=== PATIENT | female | born 1950 | race Caucasian/White ===

== ENCOUNTER → 2017-05-12 | Outpatient (CLI) | payer MEDICARE ==
[2017-05-12 09:22] LABS: EKG EKG PERFORMED
[2017-05-12 09:53] LABS: Potassium 4.6 mmol/L (3.5-5.1)
== END | disposition home or self-care (01) ==
LOC: LABPAT 08:58
PROVIDERS: ATTEND Surgery
DX: I10 Essential (primary) hypertension (principal); Z01.812 Encounter for preprocedural laboratory examination
CPT/HCPCS: 36415; 84132; 93005

== ENCOUNTER 2017-05-18 08:25 | Day surgery (SDC) | payer MEDICARE ==
[~2017-05-18 08:25] MED LIST: DEXAMETHASONE SOD PHOSPHATE 10 MG/ML 1 ML VIAL IV ONE; HEPARIN SODIUM,PORCINE 5,000 UNIT/ML 1 ML VIAL SQ ONE; MIDAZOLAM 2 MG/2 ML VIAL IV PRN; ONDANSETRON 4 MG/2 ML VIAL IVP ONE; ceFAZolin IN SWFI 2 GM/20 ML SYRINGE IVP ONE
[2017-05-18 08:54] LABS: Glucose,Whole Blood 98 mg/dL (75-99)
[2017-05-18] MEDS: LACTATED RINGERS 1,000 ML IV SCH ×2 (08:55→19:20)
[2017-05-18] MEDS ORDERED: LIDOCAINE 1% 20 ML VIAL (10MG/ML) FOR IV START INTRADERMA ONE (08:56)
--- NOTE | 2017-05-18 09:17 | P.GSHP ---
History of Present Illness H&P Date: 05/18/17 Chief Complaint: GERD, recurrent hiatal hernia This is a 67-year-old female who is developed recurrent GERD symptoms. Patient with recent EGD. She's had evidence of a recurrent hiatal hernia and possible slipped fundoplication. She presents today for laparoscopic hiatal hernia repair. Past Medical History Past Medical History: GERD/Reflux, Hypertension, Osteoarthritis (OA) Additional Past Medical History / Comment(s): HYPOGLYCEMIC History of Any Multi-Drug Resistant Organisms: None Reported Past Surgical History: Appendectomy, Back Surgery, Cholecystectomy, Hysterectomy , Joint Replacement Additional Past Surgical History / Comment(s): right knee replaced, right shoulder surg, bunionectomy,foot surg, D & C, repair of hiatal hernia Past Anesthesia/Blood Transfusion Reactions: No Reported Reaction Past Psychological History: No Psychological Hx Reported Smoking Status: Former smoker Past Alcohol Use History: None Reported Additional Past Alcohol Use History / Comment(s): quit smoking 35 yrs. ago, smoked for 6-7 yrs. only Past Drug Use History: None Reported - Past Family History Mother Family Medical History: Cancer Additional Family Medical History / Comment(s): rectal cancer Brother(s) Family Medical History: Cancer Medications and Allergies Home Medications Medication Instructions Recorded Confirmed Type Lisinopril/Hydrochlorothiazide 1 tab PO QAM 02/16/15 05/18/17 History [Lisinopril-Hctz 20-25 mg Tab] Esomeprazole Magnesium [NexIUM 22.3 mg PO QAM 04/24/17 05/18/17 History 24Hr] Magnesium Oxide 400 mg PO DAILY 04/24/17 05/18/17 History Allergies Allergy/AdvReac Type Severity Reaction Status Date / Time No Known Allergies Allergy Verified 05/11/17 11:16 Surgical - Exam Vital Signs Temp Pulse Resp BP Pulse Ox 96.7 F L 76 16 136/83 95 05/18/17 08:42 05/18/17 08:42 05/18/17 08:42 05/18/17 08:42 05/18/17 08:42 - General well developed, no distress - Eyes PERRL - ENT normal pinna - Neck no masses - Respiratory normal expansion - Cardiovascular Rhythm: regular - Abdomen Abdomen: soft, non tender Assessment and Plan Assessment: GERD. We'll perform laparoscopic hiatal hernia repair.
[2017-05-18] MEDS ORDERED: MIDAZOLAM 2 MG/2 ML VIAL ONE (09:46)
[2017-05-18] MEDS ORDERED: SUCCINYLCHOLINE CHLORIDE 100 MG/5 ML SYR IV ONE (09:46)
[2017-05-18] MEDS ORDERED: ROCURONIUM BROMIDE 10 MG/ML 10 ML VIAL IV ONE (09:46)
[2017-05-18] MEDS ORDERED: LIDOCAINE 1% INJ 10MG/ML (20 ML MDV) ONE (09:46)
[2017-05-18] MEDS ORDERED: PROPOFOL 10 MG/ML 20 ML VIAL IV ONE (09:46)
[2017-05-18] MEDS ORDERED: KETOROLAC 30 MG/ML 1 ML VIAL ONE (09:46)
[2017-05-18] MEDS ORDERED: fentaNYL (PF) 50 MCG/ML 2 ML AMP ONE (09:46)
[2017-05-18] MEDS ORDERED: BUPIVACAINE (PF) 0.25% 30 ML VIAL SQ ONE ×2 (10:06)
[2017-05-18] MEDS ORDERED: LIDOCAINE 2%-EPI 1:100,000 20 ML VIAL SQ ONE ×2 (10:06)
[2017-05-18] MEDS ORDERED: LACTATED RINGERS 1,000 ML IV ONE ×2 (10:29→10:49)
[2017-05-18] MEDS ORDERED: HYDROmorphone 0.5 MG/0.5 ML SYRINGE IVP PRN (10:49)
[2017-05-18] MEDS ORDERED: ACETAMINOPHEN TAB 325 MG TAB PO PRN (10:49)
[2017-05-18] MEDS ORDERED: ONDANSETRON 4 MG/2 ML VIAL IVP PRN (10:49)
[2017-05-18] MEDS ORDERED: NALOXONE 0.4 MG/ML 1 ML VIAL IV PRN (10:49)
--- NOTE | 2017-05-18 10:49 | P.OP ---
Date of Procedure: 05/18/17 Preoperative Diagnosis: GERD Postoperative Diagnosis: Recurrent hiatal hernia Procedure(s) Performed: Laparoscopic hiatal hernia repair with mesh. Anesthesia: FADIA Surgeon: Peter Mederos Estimated Blood Loss (ml): 10 Pathology: none sent Condition: stable Disposition: PACU Description of Procedure: The patient's placed the operative table in the supine position. She received general anesthesia. Her abdomen was prepped and draped in sterile fashion. She was then placed in dorsal 5 position. Her skin incision sites were anesthetized 1% local Xylocaine. Using 11 blade the skin was incised in the left periumbilical area. Using an optical 5 mm trocar the perineal cavity is entered under direct vision and then the abdomen was insufflated after adequate insufflation the laparoscope size back the pleural cavity. And extubated 5 mm trocar was placed in the left epigastric, right epigastric, right lateral and left lateral position. The left lateral lobe liver was retracted. There were adhesions to the stomach and these were lysed with sharp dissection. The luda was examined. There appeared to be evidence of a posterior lateral hiatal hernia involving the left luda. The fundoplication wrap was lysed and then the left luda was dissected. The right luda was dissected. The crural defect was then closed using 2-0 Ethibond suture. After this repair was performed the hiatus was buttressed using [place] [employer] a mesh. This was secured with 2-0 Ethibond suture. There was no evidence of any injury to the stomach or esophagus. The abdomen was irrigated. There is no bleeding seen. The trochars withdrawn. Skin was closed interrupted 3-0 Monocryl suture. Dermabond was applied. Patient sent to recovery in stable condition.
[2017-05-18] MEDS: HYDROmorphone 0.5 MG/0.5 ML SYRINGE IVP PRN ×4 (11:12→11:30)
[2017-05-18] MEDS ORDERED: KETOROLAC 30 MG/ML 1 ML VIAL IVP SCH (12:00)
[2017-05-18] MEDS: HYDROcodone/APAP 5-325MG 1 EACH TAB PO PRN (14:09)
[2017-05-18 15:57] VITALS: BMI 31.8
[2017-05-18] MEDS: KETOROLAC 30 MG/ML 1 ML VIAL IVP SCH (19:14)
[2017-05-19] MEDS: KETOROLAC 30 MG/ML 1 ML VIAL IVP SCH ×2 (00:33→06:55)
[2017-05-19] MEDS: HYDROcodone/APAP 5-325MG 1 EACH TAB PO PRN (03:33)
[2017-05-19 08:37] VITALS: BP 146/78; PULSE 66; RESP 20; TEMP 96.9
[2017-05-19] MEDS ORDERED: ENOXAPARIN 40 MG/0.4 ML SYRINGE SQ SCH (09:00)
--- NOTE | 2017-05-19 09:32 | P.DS ---
Providers Expected date of discharge: 05/19/17 Attending physician: Peter Mederos Consults: 05/18/17 10:49 Consult Physician Routine Consulting Provider: Belinda Bautista Consult Reason/Comments: Medical management Do you want consulting provider notified?: Yes Primary care physician: Kitty Torres [facility] Course: 67-year-old female who has developed recurrent esophageal reflux symptoms. Patient did have a recent EGD it did show evidence of recurrent hiatal hernia possible slipped fundoplication. Patient presents on an elective basis to undergo laparoscopic hiatal hernia repair done on May 18 there were no postop events patient was tolerating a diet pain medication effective for pain control was up ambulating in the hallway surgical sites no evidence of redness noted patient was felt to be appropriate to be discharged home Impression discharge diagnosis Recurrent hiatal hernia Laparoscopic hiatal hernia repair with mesh done on May 18 Recurrent EGD symptoms A recent EGD showed evidence of a recurrent hiatal hernia The above impression and plan of care have been discussed and directed by signing physician. Liset Smart nurse practitioner acting as scribe for signing physician. Plan - Discharge Summary Discharge Rx Participant: Yes New Discharge Prescriptions: New Acetaminophen Tab [Tylenol] 650 mg PO Q6HR PRN tab PRN Reason: Mild Pain Or Fever >= 100.5 HYDROcodone/APAP 5-325MG [[place] 5-325] 1 each PO Q4HR PRN #30 tab PRN Reason: Mild Pain Continue Lisinopril/Hydrochlorothiazide [Lisinopril-Hctz 20-25 mg Tab] 1 tab PO QAM Esomeprazole Magnesium [NexIUM 24Hr] 22.3 mg PO QAM Magnesium Oxide 400 mg PO DAILY Discharge Medication List Lisinopril/Hydrochlorothiazide [Lisinopril-Hctz 20-25 mg Tab] 1 tab PO QAM 02/16 [History] Esomeprazole Magnesium [NexIUM 24Hr] 22.3 mg PO QAM 04/24/17 [History] Magnesium Oxide 400 mg PO DAILY 04/24/17 [History] Acetaminophen Tab [Tylenol] 650 mg PO Q6HR PRN tab 05/19/17 [Rx] HYDROcodone/APAP 5-325MG [[place] 5-325] 1 each PO Q4HR PRN #30 tab 05/19/17 [Rx] Follow up Appointment(s)/Referral(s): Peter Mederos MD [STAFF PHYSICIAN] - 1 Week Activity/Diet/Wound Care/Special Instructions: Shower daily no tub bath No lifting greater than 4 pounds until seen in follow-up visit Report to the surgeon in a surgical of any surgical redness at surgical sites Advance diet as tolerated Discharge Disposition: HOME SELF-CARE
--- NOTE | 2017-05-19 13:22 | FL ---
EXAMINATION TYPE: FL UGI w esophagus DATE OF EXAM: 05/19/2017 COMPARISON: NONE HISTORY: Post Suad fundoplication TECHNIQUE: A single contrast UGI study is performed. 50 mL of Omnipaque 350 and 30 seconds of fluor oscopy time were utilized. 19 images were saved. FINDINGS: The esophagus shows normal motility and emptying into the stomach. No evidence of hiatal hernia or s tricture noted. The stomach shows normal distensibility, peristalsis, and mucosal folds. No evidence of postprocedural leak. IMPRESSION: No evidence of post Suad fundoplication leak or obstruction.
[2017-05-20] MEDS ORDERED: LISINOPRIL-HCTZ 20-25 MG 1 EACH TAB PO SCH (09:00)
[2017-05-20] MEDS ORDERED: MAGNESIUM OXIDE 400 MG TAB PO SCH (09:00)
== END 2017-05-19 13:20 | disposition home or self-care (01) ==
LOC: OR 08:25 → 6PED 11:22 → OR 05-19 13:20
PROVIDERS: ATTEND Surgery
DX: K44.9 Diaphragmatic hernia without obstruction or gangrene (principal); K66.0 Peritoneal adhesions (postprocedural) (postinfection); K21.9 Gastro-esophageal reflux disease without esophagitis; I10 Essential (primary) hypertension; M19.90 Unspecified osteoarthritis, unspecified site; Z79.899 Other long term (current) drug therapy; Z87.891 Personal history of nicotine dependence; Z96.651 Presence of right artificial knee joint; Z80.0 Family history of malignant neoplasm of digestive organs; Z80.9 Family history of malignant neoplasm, unspecified
CPT/HCPCS: 43282; 74240; C1781; J2250; J1644; J1100; Q9967; J0690; J2405; J2001; J1650; J3010; J1885 ×2; J0330; J2704; J1170

== ENCOUNTER → 2019-05-06 | Outpatient (CLI) | payer MEDICARE ==
--- NOTE | 2019-05-06 09:32 | FL ---
EXAMINATION TYPE: FL barium swallow DATE OF EXAM: 05/06/2019 CLINICAL HISTORY: Dysphagia. Vomiting and gastroesophageal reflux. The feels as if there is recurrent hernia present. TECHNIQUE: A double contrast esophagram is performed utilizing air and barium. A total of 47 second s of fluoroscopic time was utilized during procedure. 31 fluoroscopic images were saved. COMPARISON: None FINDINGS: The esophagus shows normal motility and emptying into the stomach other than some delayed w ithin the residual hiatal hernia is visualized. Small recurrent hiatal hernia appears or conspicuous on supine imaging. No significant gastroesophageal reflux seen examination. There is evidence of prio r Suad fundoplication with nonobstructive narrowing distal to the small recurrent hernia. IMPRESSION: Small recurrent hiatal hernia status post Suad fundoplication.
== END | disposition home or self-care (01) ==
LOC: RADUSWWP 08:37
PROVIDERS: ATTEND Surgery
DX: K21.9 Gastro-esophageal reflux disease without esophagitis (principal); Z98.890 Other specified postprocedural states
CPT/HCPCS: 74220

== ENCOUNTER → 2019-05-13 | Day surgery (SDC) | payer MEDICARE ==
[2019-05-10 15:26] VITALS: BMI 32.2
[~2019-05-13] MED LIST changes: -DEXAMETHASONE SOD PHOSPHATE 10 MG/ML 1 ML VIAL IV ONE; +GLUCAGON 1 MG/ML VIAL ONE; -HEPARIN SODIUM,PORCINE 5,000 UNIT/ML 1 ML VIAL SQ ONE; +IV FLUID CONTINUATION 450 ML IV ONE; +LACTATED RINGERS 1,000 ML IV SCH; +LIDOCAINE 1% 20 ML VIAL (10MG/ML) FOR IV START INTRADERMA PRN; +LIDOCAINE 1% INJ 10MG/ML (20 ML MDV) ONE; -MIDAZOLAM 2 MG/2 ML VIAL IV PRN; -ONDANSETRON 4 MG/2 ML VIAL IVP ONE; +PROPOFOL 10 MG/ML 20 ML VIAL IV ONE; -ceFAZolin IN SWFI 2 GM/20 ML SYRINGE IVP ONE
[2019-05-13 08:30] VITALS: TEMP 97.6
--- NOTE | 2019-05-13 09:01 | P.GSHP ---
History of Present Illness H&P Date: 05/13/19 Chief Complaint: Diarrhea, GERD This is a 69-year-old female who's had issues with diarrhea and GERD. She does today for EGD and colonoscopy. Past Medical History Past Medical History: GERD/Reflux, Hypertension, Osteoarthritis (OA) Additional Past Medical History / Comment(s): HYPOGLYCEMIC History of Any Multi-Drug Resistant Organisms: None Reported Past Surgical History: Appendectomy, Back Surgery, Cholecystectomy, Hysterectomy, Joint Replacement Additional Past Surgical History / Comment(s): right knee replaced, right shoulder surg, bunionectomy,foot surg, D & C, repair of hiatal hernia Past Anesthesia/Blood Transfusion Reactions: No Reported Reaction Additional Past Anesthesia/Blood Transfusion Reaction / Comment(s): low blood pressure afterwards Past Alcohol Use History: None Reported - Past Family History Mother Family Medical History: Cancer Additional Family Medical History / Comment(s): rectal cancer Brother(s) Family Medical History: Cancer Medications and Allergies Home Medications Medication Instructions Recorded Confirmed Type Lisinopril/Hydrochlorothiazide 1 tab PO QAM 02/16/15 05/13/19 History [Lisinopril-Hctz 20-25 mg Tab] Esomeprazole Magnesium [NexIUM 22.3 mg PO QAM 04/24/17 05/13/19 History 24Hr] Levothyroxine Sodium [Synthroid] 75 mcg PO DAILY 05/10/19 05/13/19 History rOPINIRole HCL [Requip] 0.5 mg PO HS 05/10/19 05/13/19 History Allergies Allergy/AdvReac Type Severity Reaction Status Date / Time Sulfa (Sulfonamide Allergy Unknown Verified 05/13/19 08:33 Antibiotics) Childhood Surgical - Exam Vital Signs Temp Pulse Resp BP Pulse Ox 97.6 F 65 16 164/91 95 05/13/19 08:29 05/13/19 08:29 05/13/19 08:29 05/13/19 08:29 05/13/19 08:29 - General well developed, well nourished, no distress - Eyes PERRL - ENT normal pinna - Neck no masses - Respiratory normal expansion - Cardiovascular Rhythm: regular - Abdomen Abdomen: soft, non tender Assessment and Plan Assessment: Diarrhea, GERD. We'll perform EGD and colonoscopy.
[2019-05-13 09:45] VITALS: BP 126/74; PULSE 55; RESP 18
--- NOTE | 2019-05-13 09:56 | P.OP ---
Date of Procedure: 05/13/19 Preoperative Diagnosis: Diarrhea GERD Postoperative Diagnosis: Antral gastritis Mild esophagitis Procedure(s) Performed: EGD Colonoscopy Anesthesia: MAC Pathology: other (Antrum, esophagus) Description of Procedure: The patient's placed on the endoscopy table in the lateral position. She received IV sedation. The gastroscope placed she oropharynx and passed into the esophagus and then into the stomach. Scope was then placed through the pylorus. The first and second portion of the duodenum appeared normal. Scope was then brought back the antrum this is mildly inflamed. A biopsies performed. The scope was then retroflexed and remainder of the stomach appeared normal. There was a small recurrent hiatal hernia. The GE junction was at 40 cm. The distal esophagus. Minimal inflamed and a biopsies performed. The proximal esophagus. Normal. Scope was withdrawn for patient. Next digital rectal exam was performed. The colonoscope was then advanced to the level of the left colon. The bowel was very tortuous. Scope could not be advanced. This point scope was withdrawn. There was a few scattered diverticula. In the descending and sigmoid colon. Scope was then brought back the rectum is normal. Scope was withdrawn for patient. Patient scheduled for a barium enema.
--- NOTE | 2019-05-13 15:08 | FL ---
EXAMINATION TYPE: FL barium enema DATE OF EXAM: 05/13/2019 COMPARISON: NONE HISTORY: Incomplete colonoscopy, no biopsy, left colon visu TECHNIQUE: A single contrast barium enema study is performed. FINDINGS: Building Admin view of the abdomen shows overall non-obstructive bowel gas pattern. No evidence of any mass or polyp, obstructing or constricting lesion throughout the colon. Mild sigmo id diverticulosis without diverticulitis. Appendix was filled and appeared normal. The terminal ileum was refluxed and appears within normal l imits. IMPRESSION: Mild sigmoid diverticulosis without diverticulitis. Otherwise unremarkable study.
== END ==
LOC: ORWHC2ENDO 08:06
PROVIDERS: ATTEND Surgery
DX: K21.0 Gastro-esophageal reflux disease with esophagitis (principal); K29.50 Unspecified chronic gastritis without bleeding; K31.89 Other diseases of stomach and duodenum; K44.9 Diaphragmatic hernia without obstruction or gangrene; Q43.8 Other specified congenital malformations of intestine; K57.30 Diverticulosis of large intestine without perforation or abscess without bleeding; E07.9 Disorder of thyroid, unspecified; I10 Essential (primary) hypertension; M19.90 Unspecified osteoarthritis, unspecified site; G25.81 Restless legs syndrome; E16.2 Hypoglycemia, unspecified; Z90.49 Acquired absence of other specified parts of digestive tract; Z90.710 Acquired absence of both cervix and uterus; Z96.651 Presence of right artificial knee joint; Z98.890 Other specified postprocedural states; Z80.0 Family history of malignant neoplasm of digestive organs; Z80.9 Family history of malignant neoplasm, unspecified; Z79.890 Hormone replacement therapy; Z79.899 Other long term (current) drug therapy; Z88.2 Allergy status to sulfonamides
CPT/HCPCS: 88305; 74270; 43239; 45330; J1610; J2001; J2704; 45378

== ENCOUNTER → 2020-01-02 | Outpatient (CLI) | payer MEDICARE, OTHER ==
--- NOTE | 2020-01-02 09:21 | FL ---
EXAMINATION TYPE: FL UGI air w esophagus DATE OF EXAM: 01/02/2020 8:55 AM COMPARISON: NONE CLINICAL HISTORY: Difficulty in swallowing. Preliminary view of the abdomen reveals a normal bowel gas pattern. Upper GI examination was performed according to the single contrast technique. Thin liquid barium was swallowed without difficulty or delay. Esophageal peristalsis and motility are within normal limits . There is no evidence for intraluminal mass or esophagitis. There is moderately severe gastroesophag eal reflux extending to the level of the thoracic inlet. Sliding-type partially reducible hiatal andriy ia is noted small in size. The stomach has a normal appearance in terms of its size, shape and locati on. No gastric filling defects or ulcer craters are seen. The duodenal bulb and sweep are also free of intraluminal lesion or ulcer crater. And single contrast cervical esophagram was also performed following the ingestion of thin liquid bar ium. There is no evidence for aspiration or penetration. No masses are seen. No filling defects ar e evident. IMPRESSION: 1. Gastroesophageal reflux as noted without definite evidence for esophagitis at this time. 2. Sliding-type partially reducible hiatal hernia.
== END | disposition home or self-care (01) ==
LOC: RADUSWWP 07:56
PROVIDERS: ATTEND Surgery
DX: K21.9 Gastro-esophageal reflux disease without esophagitis (principal); K44.9 Diaphragmatic hernia without obstruction or gangrene
CPT/HCPCS: 74246

== ENCOUNTER → 2020-01-12 | Day surgery (SDC) | payer MEDICARE, OTHER ==
[2020-01-11 09:36] VITALS: BMI 30.9
[~2020-01-12] MED LIST changes: -GLUCAGON 1 MG/ML VIAL ONE; -IV FLUID CONTINUATION 450 ML IV ONE; +LACTATED RINGERS 1,000 ML IV ONE; +LIDOCAINE 1% (10MG/ML) FOR IV START INTRADERMA ONE; -LIDOCAINE 1% 20 ML VIAL (10MG/ML) FOR IV START INTRADERMA PRN; -LIDOCAINE 1% INJ 10MG/ML (20 ML MDV) ONE
[2020-01-12 11:01] VITALS: TEMP 98
--- NOTE | 2020-01-12 12:06 | P.GSHP ---
History of Present Illness H&P Date: 01/12/20 Chief Complaint: Dysphagia Cyst 69-year-old female with complaints of dysphagia. Patient rents today for EGD. Her recent esophagram shows evidence of a small sliding hiatal hernia Past Medical History Past Medical History: GERD/Reflux, Hypertension, Osteoarthritis (OA), Thyroid Disorder Additional Past Medical History / Comment(s): HYPOGLYCEMIC, RECENT VOMITING AT NIGHT History of Any Multi-Drug Resistant Organisms: None Reported Past Surgical History: Appendectomy, Back Surgery, Cholecystectomy, Hernia Repair, Hysterectomy, Joint Replacement Additional Past Surgical History / Comment(s): right knee replaced, right shoulder surg, bunionectomy,foot surg, D & C, repair of hiatal hernia Past Anesthesia/Blood Transfusion Reactions: No Reported Reaction Additional Past Anesthesia/Blood Transfusion Reaction / Comment(s): low blood pressure afterwards Smoking Status: Former smoker - Past Family History Mother Family Medical History: Cancer Additional Family Medical History / Comment(s): rectal cancer Brother(s) Family Medical History: Cancer Medications and Allergies Home Medications Medication Instructions Recorded Confirmed Type Lisinopril/Hydrochlorothiazide 1 tab PO QAM 02/16/15 01/11/20 History [Lisinopril-Hctz 20-25 mg Tab] Esomeprazole Magnesium [NexIUM 22.3 mg PO QAM 04/24/17 01/11/20 History 24Hr] Levothyroxine Sodium [Synthroid] 75 mcg PO DAILY 05/10/19 01/11/20 History rOPINIRole HCL [Requip] 2 mg PO HS 05/10/19 01/11/20 History Allergies Allergy/AdvReac Type Severity Reaction Status Date / Time Sulfa (Sulfonamide Allergy Unknown Verified 01/11/20 09:12 Antibiotics) Childhood Surgical - Exam Vital Signs Temp Pulse Resp BP Pulse Ox 98 F 82 18 129/75 96 01/12/20 11:00 01/12/20 11:00 01/12/20 11:00 01/12/20 11:00 01/12/20 11:00 - General well developed, well nourished, no distress - Eyes PERRL - ENT normal pinna, normal nares - Neck no masses - Respiratory normal expansion - Cardiovascular Rhythm: regular - Abdomen Abdomen: soft, non tender Assessment and Plan Assessment: Dysphagia. We'll perform EGD.
--- NOTE | 2020-01-12 12:14 | P.OP ---
Date of Procedure: 01/12/20 Preoperative Diagnosis: Dysphagia Postoperative Diagnosis: Small hiatal hernia Mild esophagitis Procedure(s) Performed: EGD Anesthesia: MAC Surgeon: Peter Mederos Pathology: other (Esophagus) Condition: stable Disposition: PACU Description of Procedure: The patient's placed on the endoscopy table in the lateral position. She received IV sedation. The gastroscope placed oropharynx passed in the esophagus the pylorus. First and second portion of the duodenum appeared normal. Scope was brought back the antrum this appeared normal. Scope was retroflexed patient small sliding hiatal hernia. The GE junction was at 38 cm. The distal esophagus appeared mildly inflamed a biopsies performed. The proximal esophagus appeared normal. Scope withdrawn for patient.
[2020-01-12 12:21] VITALS: RESP 16
[2020-01-12 12:39] VITALS: BP 120/79; PULSE 64
== END ==
LOC: ORWHC2ENDO 10:07
PROVIDERS: ATTEND Surgery
DX: K21.0 Gastro-esophageal reflux disease with esophagitis (principal); K44.9 Diaphragmatic hernia without obstruction or gangrene; I10 Essential (primary) hypertension; M19.90 Unspecified osteoarthritis, unspecified site; E07.9 Disorder of thyroid, unspecified; E16.2 Hypoglycemia, unspecified; Z90.49 Acquired absence of other specified parts of digestive tract; Z90.710 Acquired absence of both cervix and uterus; G25.81 Restless legs syndrome; Z96.651 Presence of right artificial knee joint; Z98.890 Other specified postprocedural states; Z87.891 Personal history of nicotine dependence; Z80.0 Family history of malignant neoplasm of digestive organs; Z79.890 Hormone replacement therapy; Z79.899 Other long term (current) drug therapy; Z88.2 Allergy status to sulfonamides
CPT/HCPCS: 88305; 43239; J2704

== ENCOUNTER → 2020-05-10 | Outpatient (CLI) | payer MEDICARE, OTHER ==
--- NOTE | 2020-05-10 10:46 | FL ---
Barium swallow HISTORY: Dysphasia Patient was given high density barium to drink. The swallowing mechanism is normal. Postop changes are noted the gastroesophageal junction. Small hia seng hernia is present. Gastroesophageal reflux is present to the upper thoracic esophagus. Tertiary e sophageal contractions are noted. 1 minute 45 seconds fluoroscopy time. 11 intraoperative images document the procedure. IMPRESSION: Hiatal hernia with gastroesophageal reflux. Tertiary esophageal contractions.
== END | disposition home or self-care (01) ==
LOC: RADUSWWP 07:41
PROVIDERS: ATTEND Surgery
DX: K44.9 Diaphragmatic hernia without obstruction or gangrene (principal); K21.9 Gastro-esophageal reflux disease without esophagitis; K22.8 Other specified diseases of esophagus
CPT/HCPCS: 74220

== ENCOUNTER → 2020-05-17 | Outpatient (CLI) | payer MEDICARE, OTHER | END | disposition home or self-care (01) | LOC: LABPAT 14:14 | PROVIDERS: ATTEND Surgery | DX: Z01.818 Encounter for other preprocedural examination (principal); R13.19 Other dysphagia | CPT/HCPCS: 86850; 86900; 86901; 93005 ==

== ENCOUNTER 2020-05-23 08:19 | Day surgery (SDC) | payer MEDICARE, OTHER ==
[~2020-05-23 08:19] MED LIST changes: +ACETAMINOPHEN TAB 500 MG TAB PO PRN; +HEPARIN SODIUM,PORCINE 5,000 UNIT/ML 1 ML VIAL SQ PRN; -LACTATED RINGERS 1,000 ML IV ONE; -LIDOCAINE 1% (10MG/ML) FOR IV START INTRADERMA ONE; +MIDAZOLAM 2 MG/2 ML VIAL IV PRN; +ONDANSETRON 4 MG/2 ML VIAL IVP PRN; -PROPOFOL 10 MG/ML 20 ML VIAL IV ONE; +fentaNYL (PF) 50 MCG/ML 2 ML AMP IV PRN
[2020-05-23] MEDS ORDERED: LACTATED RINGERS 1,000 ML IV ONE ×2 (08:42→11:18)
[2020-05-23] MEDS ORDERED: ONDANSETRON 4 MG/2 ML VIAL ONE (08:43)
[2020-05-23 08:55] LABS: Glucose,Whole Blood 108 mg/dL (75-99)
[2020-05-23] MEDS ORDERED: DEXAMETHASONE SOD PHOSPHATE 4 MG/ML 1 ML VIAL IVP ONE (08:58)
--- NOTE | 2020-05-23 10:06 | P.GSHP ---
History of Present Illness H&P Date: 05/23/20 Chief Complaint: Dysphagia This a 70-year-old female who's had complaints with dysphagia related to a recurrent paraesophageal hernia. Patient presents today for laparoscopic repair. Past Medical History Past Medical History: GERD/Reflux, Hypertension, Thyroid Disorder Additional Past Medical History / Comment(s): HYPOGLYCEMIC, restless leg syndrome, hiatal hernia, hx ulcer yrs ago, History of Any Multi-Drug Resistant Organisms: None Reported Past Surgical History: Appendectomy, Back Surgery, Cholecystectomy, Hysterectomy, Joint Replacement, Tonsillectomy Additional Past Surgical History / Comment(s): right knee replaced, right shoulder replacement, left foot bunionectomy, D & C, repair of hiatal hernia repair x 2, surgery for "nerve damage" rt arm, "back surgery with spacers" Past Anesthesia/Blood Transfusion Reactions: Previous Problems w/ Anesthesia Additional Past Anesthesia/Blood Transfusion Reaction / Comment(s): "My blood pressure was low in post op and they had trouble waking me up" Smoking Status: Former smoker - Past Family History Mother Family Medical History: Cancer Additional Family Medical History / Comment(s): colon Sister(s) Family Medical History: Pulmonary Embolus Brother(s) Family Medical History: Cancer Additional Family Medical History / Comment(s): esophageal, lung Medications and Allergies Home Medications Medication Instructions Recorded Confirmed Type Lisinopril/Hydrochlorothiazide 1 tab PO QAM 02/16/15 05/21/20 History [Lisinopril-Hctz 20-25 mg Tab] Atorvastatin Calcium [Lipitor] 20 mg PO DAILY 05/21/20 05/21/20 History Biotin 10,000 mcg PO QAM 05/21/20 05/21/20 History Levothyroxine Sodium [Synthroid] 100 mcg PO DAILY 05/21/20 05/21/20 History Magnesium Oxide 400 mg PO QAM 05/21/20 05/21/20 History Omeprazole [PriLOSEC] 40 mg PO DAILY 05/21/20 05/21/20 History rOPINIRole HCL [Requip] 3 mg PO HS 05/21/20 05/21/20 History Allergies Allergy/AdvReac Type Severity Reaction Status Date / Time Sulfa (Sulfonamide Allergy Unknown Verified 05/21/20 09:46 Antibiotics) Childhood Surgical - Exam Vital Signs Temp Pulse Resp BP Pulse Ox 97.8 F 74 18 129/62 94 L 05/23/20 08:41 05/23/20 08:41 05/23/20 08:41 05/23/20 08:41 05/23/20 08:41 - General well developed, well nourished, no distress - Eyes PERRL - ENT normal pinna - Neck no masses - Respiratory normal expansion - Cardiovascular Rhythm: regular - Abdomen Abdomen: soft, non tender Results - Labs 05/23/20 08:55 Abnormal Lab Results - Last 24 Hours (Table) 05/23/20 Range/Units 08:53 POC Glucose (mg/dL) 108 H (75-99) mg/dL Diabetes panel 05/23/20 Range/Units 08:55 Potassium 4.6 (3.5-5.1) mmol/L Pituitary panel 05/23/20 Range/Units 08:55 Potassium 4.6 (3.5-5.1) mmol/L Adrenal panel 05/23/20 Range/Units 08:55 Potassium 4.6 (3.5-5.1) mmol/L Assessment and Plan Assessment: Esophageal hernia. We'll perform laparoscopic repair
[2020-05-23] MEDS ORDERED: WATER FOR INJECTION, STERILE 10 ML VIAL IV ONE (10:31)
[2020-05-23] MEDS ORDERED: ePHEDrine SULFATE/0.9% NACL/PF 50 MG/5 ML SYRINGE IV ONE (10:31)
[2020-05-23] MEDS ORDERED: ROCURONIUM 10 MG/ML (10 ML VIAL) IV ONE (10:31)
[2020-05-23] MEDS ORDERED: GLYCOPYRROLATE 0.2 MG/ML 2 ML VIAL ONE (10:31)
[2020-05-23] MEDS ORDERED: fentaNYL (PF) 50 MCG/ML 2 ML AMP ONE (10:31)
[2020-05-23] MEDS ORDERED: SUCCINYLCHOLINE CHLORIDE 100 MG/5 ML SYR IV ONE (10:31)
[2020-05-23] MEDS ORDERED: HYDROmorphone (PF) 1 MG/ML ONE (10:31)
[2020-05-23] MEDS ORDERED: PHENYLEPHRINE-0.9% NACL SYG 1 MG/10 ML SYRINGE ONE (10:31)
[2020-05-23] MEDS ORDERED: NEOSTIGMINE 1 MG/ML 10 ML VIAL ONE (10:31)
[2020-05-23] MEDS ORDERED: MIDAZOLAM 2 MG/2 ML VIAL ONE (10:31)
[2020-05-23] MEDS ORDERED: LIDOCAINE 1% INJ 10MG/ML (20 ML MDV) ONE (10:31)
[2020-05-23] MEDS ORDERED: PROPOFOL 10 MG/ML 20 ML VIAL IV ONE (10:31)
[2020-05-23] MEDS ORDERED: BUPIVACAINE (PF) 0.25% 30 ML VIAL SQ ONE (10:56)
[2020-05-23] MEDS ORDERED: HYDROmorphone 1 MG/ML 1 ML SYRINGE IVP PRN (12:22)
[2020-05-23] MEDS ORDERED: ONDANSETRON 4 MG/2 ML VIAL IVP PRN (12:22)
--- NOTE | 2020-05-23 12:28 | P.OP ---
Date of Procedure: 05/23/20 Preoperative Diagnosis: Paraesophageal hernia Postoperative Diagnosis: Paraesophageal hernia Procedure(s) Performed: Laparoscopic robotic-assisted repair of paraesophageal hernia with mesh Anesthesia: FADIA Surgeon: Peter Mederos Pathology: none sent Condition: stable Disposition: PACU Description of Procedure: The patient was placed on the operating table in the supine position. She received general anesthesia. She was then placed in dorsal lithotomy position. Her abdomen was prepped and draped in the usual sterile fashion. The skin incision sites were anesthetized with 1% local Xylocaine. The skin was incised in the left periumbilical area with an 11 scalpel. Using a 5 mm blade was trocar under direct visitation the peritoneal cavity was entered. And then insufflated. After adequate insufflation the laparoscope was placed back into the peritoneal cavity. Next a 5 mm trocar was placed in the right epigastric and then the right lateral position. Another 5 mm trochars placed in the left lateral position. Another 5 mm trocar placed in the left epigastric position. And the original left periumbilical trocar was exchanged for a 10 mm trocar. The left lateral lobe liver was retracted. The patient had a paraesophageal. Using the Harmonic scissors the crural defect was dissected in the Harmonic scissors were used to dissect the hiatal hernia sac. The fundus of the stomach was completely mobilized by using the Harmonic scissors to divide short gastric vessels. The stomach was reduced into the peritoneal cavity. The crura was dissected with the Harmonic scissors. And then the crural repair was performed using 2-0 Ethibond suture. The [place] bio A mesh was then placed over top of the repair and secured with 2-0 Ethibond suture. Next a 58-[place] bougie dilator was placed the patient's oral pharynx and into the esophagus into the stomach by the BEAD MAKER. d. At this point the dilator was withdrawn. The stomach and esophagus were inspected there is known to any injury to the stomach or esophagus. The abdomen was irrigated there is no bleeding seen. The trochars are withdrawn. Skin was closed interrupted 3-0 Monocryl suture. Dermabond was applied. Patient tolerated procedure well and was sent to recovery in stable condition.
[2020-05-23] MEDS: HYDROmorphone 0.5 MG/0.5 ML SYRINGE IVP PRN ×2 (12:45→12:51)
[2020-05-23 14:54] VITALS: BMI 28.6
[2020-05-23] MEDS: D5-0.45% NACL WITH KCL 20MEQ/L 1,000 ML IV SCH ×2 (17:55→20:10)
--- NOTE | 2020-05-23 18:36 | P.CONS ---
History of Present Illness - Reason for Consult Consult date: 05/23/20 - History of Present Illness Jayshree Ovalle, he is a 17-year-old female patient of Dr. Torres, who was admitted to [facility] by Dr. Mederos, due to history of dysphagia and recurrent paraesophageal hernia, patient underwent laparoscopic robotic-assisted repair of paraesophageal hernia with mesh was admitted to medical floor post surgery medical consultation was requested for management while hospitalized. Past medical history is significant for hypertension, gastroesophageal reflux disease, thyroid disease, restless leg syndrome, chronic back pain with history of back surgery, osteoarthritis with previous history of right knee replacement and right shoulder replacement. Patient also has a known history of hypertension, and hyperlipidemia. She is a former smoker. Past Medical History Past Medical History: GERD/Reflux, Hypertension, Thyroid Disorder Additional Past Medical History / Comment(s): HYPOGLYCEMIC, restless leg synd shell, hiatal hernia, hx ulcer yrs ago, History of Any Multi-Drug Resistant Organisms: None Reported Past Surgical History: Appendectomy, Back Surgery, Cholecystectomy, Hysterectomy, Joint Replacement, Tonsillectomy Additional Past Surgical History / Comment(s): right knee replaced, right shoulder replacement, left foot bunionectomy, D & C, repair of hiatal hernia repair x 2, surgery for "nerve damage" rt arm, "back surgery with spacers" Past Anesthesia/Blood Transfusion Reactions: Previous Problems w/ Anesthesia Additional Past Anesthesia/Blood Transfusion Reaction / Comm: "My blood pressure was low in post op and they had trouble waking me up" Smoking Status: Former smoker - Past Family History Mother Family Medical History: Cancer Additional Family Medical History / Comment(s): colon Sister(s) Family Medical History: Pulmonary Embolus Brother(s) Family Medical History: Cancer Additional Family Medical History / Comment(s): esophageal, lung Medications and Allergies Home Medications Medication Instructions Recorded Confirmed Type Lisinopril/Hydrochlorothiazide 1 tab PO QAM 02/16/15 05/23/20 History [Lisinopril-Hctz 20-25 mg Tab] Atorvastatin Calcium [Lipitor] 20 mg PO DAILY 05/21/20 05/23/20 History Biotin 10,000 mcg PO QAM 05/21/20 05/23/20 History Levothyroxine Sodium [Synthroid] 100 mcg PO DAILY 05/21/20 05/23/20 History Magnesium Oxide 400 mg PO QAM 05/21/20 05/23/20 History Omeprazole [PriLOSEC] 40 mg PO DAILY 05/21/20 05/23/20 History rOPINIRole HCL [Requip] 3 mg PO HS 05/21/20 05/23/20 History Allergies Allergy/AdvReac Type Severity Reaction Status Date / Time Sulfa (Sulfonamide Allergy Unknown Verified 05/23/20 14:11 Antibiotics) Childhood Physical Exam Vitals: Vital Signs Temp Pulse Pulse Pulse Resp BP BP 05/23/20 17:30 97.7 F 67 16 116/62 05/23/20 16:30 76 16 108/47 05/23/20 15:30 62 16 123/57 05/23/20 15:00 62 16 107/60 05/23/20 14:30 58 L 16 107/56 05/23/20 14:15 56 L 16 109/54 05/23/20 14:00 53 L 16 111/65 05/23/20 13:45 97.4 F L 61 16 134/69 05/23/20 13:15 65 16 120/67 05/23/20 13:01 58 L 16 133/73 05/23/20 12:45 56 L 16 145/64 05/23/20 12:31 74 16 124/60 05/23/20 12:16 96.8 F L 103 H 18 140/61 05/23/20 08:41 97.8 F 74 18 129/62 Pulse Ox 05/23/20 17:30 97 05/23/20 16:30 96 05/23/20 15:30 97 05/23/20 15:00 99 05/23/20 14:30 96 05/23/20 14:15 98 05/23/20 14:00 96 05/23/20 13:45 96 05/23/20 13:15 93 L 05/23/20 13:01 100 05/23/20 12:45 94 L 05/23/20 12:31 100 05/23/20 12:16 99 05/23/20 08:41 94 L Intake and Output 05/23/20 05/23/20 05/23/20 06:59 14:59 22:59 Intake Total 1510 Output Total 5 Balance 1505 Intake: IV 1450 Oral 60 Output: Estimated Blood Loss 5 Other: # Voids 1 Weight 73.3 kg 73.3 kg In general patient is alert and oriented 3 in no apparent distress She ENT head normocephalic and atraumatic Neck is supple no JVD no goiter no lymphadenopathy Chest exam reveals a few scattered crackles no wheezing Cardiac exam reveals regular heart sounds no murmurs Abdomen is soft nontender no organomegaly with normal bowel sounds Extremity exam reveals no edema no cyanosis or clubbing Neurological examination reveals no gross focal deficit Results CBC & Chem 7: 05/23/20 08:55 Labs: Abnormal Lab Results - Last 24 Hours (Table) 05/23/20 Range/Units 08:53 POC Glucose (mg/dL) 108 H (75-99) mg/dL Assessment and Plan Plan: 1. Status post laparoscopic robotic-assisted repair of her esophageal hernia with mesh done today by Dr. Mederos 2. Underlying history of hypertension 3. Underlying history of hyperlipidemia 4. Underlying history of degenerative disc disease and osteoarthritis Home medications reviewed and reordered Will follow during this admission for medical management
[2020-05-23] MEDS: METOCLOPRAMIDE 5 MG/ML 2 ML VIAL IVP SCH (20:19)
[2020-05-24] MEDS: METOCLOPRAMIDE 5 MG/ML 2 ML VIAL IVP SCH ×2 (01:53→09:37)
[2020-05-24 01:58] VITALS: RESP 16
[2020-05-24] MEDS: D5-0.45% NACL WITH KCL 20MEQ/L 1,000 ML IV SCH (06:12)
[2020-05-24] MEDS ORDERED: LEVOTHYROXINE 100 MCG TAB PO SCH (06:30)
[2020-05-24] MEDS ORDERED: PANTOPRAZOLE 40 MG TABLET PO SCH (07:30)
--- NOTE | 2020-05-24 08:51 | FL ---
EXAMINATION TYPE: FL esophagus cervic/pharynx DATE OF EXAM: 05/24/2020 HISTORY: Rule out leak/obstruction. Post hiatal hernia repair 05/23/2020. COMPARISON: Fluoroscopy barium swallow 05/10/2020 TECHNIQUE: A single water-soluble contrast esophagram is performed utilizing 50 mL of Isovue-370. FINDINGS: There is a trace amount of pneumoperitoneum as expected status post surgery. Postoperative changes at the GE junction. No evidence of hiatal hernia. Tertiary esophageal peristals is again seen. There is mild to moderate delayed esophageal emptying, without significant narrowing a t the GE junction. No evidence of oral contrast extravasation or leak. There is gastric emptying into the proximal duodenum. Total fluoroscopy time 1 minute 10 seconds. Total images obtained 13. IMPRESSION: 1. No evidence of leak. 2. Mild to moderate delayed esophageal emptying. 3. Trace pneumoperitoneum as expected postoperatively.
[2020-05-24] MEDS ORDERED: NON FORMULARY DRUG (Biotin [Biotin] 10,000 MCG Capsule) PO SCH (09:00)
[2020-05-24] MEDS ORDERED: ATORVASTATIN 20 MG TAB PO SCH (09:00)
[2020-05-24] MEDS ORDERED: LISINOPRIL-HCTZ 20-25 MG 1 EACH TAB PO SCH (09:00)
[2020-05-24] MEDS ORDERED: ENOXAPARIN 40 MG/0.4 ML SYRINGE SQ SCH (09:00)
[2020-05-24] MEDS ORDERED: MAGNESIUM OXIDE 400 MG TAB PO SCH (09:00)
[2020-05-24 09:18] VITALS: BP 136/73; PULSE 69; TEMP 98.1
--- NOTE | 2020-05-24 11:59 | P.DS ---
Providers Date of admission: 05/23/2020 Expected date of discharge: 05/24/20 Attending physician: Peter Mederos Consults: 05/23/20 12:26 Consult Physician Routine Consulting Provider: Sharath Good Consult Reason/Comments: med manage Do you want consulting provider notified?: Yes Primary care physician: [facility] Course: This a 70-year-old female who underwent laparoscopic repair of paraesophageal hernia yesterday. Patient is doing quite well today. She has no points of abdominal pain. Her incisions are clean and intact. Her esophagram shows no evidence of recurrent hernia. Procedures: Laparoscopic repair of paraesophageal hernia Patient Condition at Discharge: Good Plan - Discharge Summary Discharge Rx Participant: Yes New Discharge Prescriptions: No Action Lisinopril/Hydrochlorothiazide [Lisinopril-Hctz 20-25 mg Tab] 1 tab PO QAM Levothyroxine Sodium [Synthroid] 100 mcg PO DAILY Biotin 10,000 mcg PO QAM Atorvastatin Calcium [Lipitor] 20 mg PO DAILY rOPINIRole HCL [Requip] 3 mg PO HS Omeprazole [PriLOSEC] 40 mg PO DAILY Magnesium Oxide 400 mg PO QAM Discharge Medication List Lisinopril/Hydrochlorothiazide [Lisinopril-Hctz 20-25 mg Tab] 1 tab PO QAM 02/16/15 [History] Atorvastatin Calcium [Lipitor] 20 mg PO DAILY 05/21/20 [History] Biotin 10,000 mcg PO QAM 05/21/20 [History] Levothyroxine Sodium [Synthroid] 100 mcg PO DAILY 05/21/20 [History] Magnesium Oxide 400 mg PO QAM 05/21/20 [History] Omeprazole [PriLOSEC] 40 mg PO DAILY 05/21/20 [History] rOPINIRole HCL [Requip] 3 mg PO HS 05/21/20 [History] Follow up Appointment(s)/Referral(s): Peter Mederos MD [STAFF PHYSICIAN] - 2 Weeks Activity/Diet/Wound Care/Special Instructions: Full liquid diet for 2 weeks Discharge Disposition: HOME SELF-CARE
== END 2020-05-24 13:45 | disposition home or self-care (01) ==
LOC: OR 08:19 → 6PED 12:15 → OR 05-24 13:45
PROVIDERS: ATTEND Surgery
DX: K44.9 Diaphragmatic hernia without obstruction or gangrene (principal); K21.9 Gastro-esophageal reflux disease without esophagitis; I10 Essential (primary) hypertension; E07.9 Disorder of thyroid, unspecified; E16.2 Hypoglycemia, unspecified; G25.81 Restless legs syndrome; G89.29 Other chronic pain; M54.9 Dorsalgia, unspecified; M19.90 Unspecified osteoarthritis, unspecified site; E78.5 Hyperlipidemia, unspecified; M51.9 Unspecified thoracic, thoracolumbar and lumbosacral intervertebral disc disorder; Z87.898 Personal history of other specified conditions; Z90.49 Acquired absence of other specified parts of digestive tract; Z98.890 Other specified postprocedural states; Z90.710 Acquired absence of both cervix and uterus; Z96.651 Presence of right artificial knee joint; Z96.611 Presence of right artificial shoulder joint; Z90.89 Acquired absence of other organs; Z87.39 Personal history of other diseases of the musculoskeletal system and connective tissue; Z86.69 Personal history of other diseases of the nervous system and sense organs; Z91.89 Other specified personal risk factors, not elsewhere classified; Z87.891 Personal history of nicotine dependence; Z79.899 Other long term (current) drug therapy; Z79.890 Hormone replacement therapy; Z88.2 Allergy status to sulfonamides; Z80.0 Family history of malignant neoplasm of digestive organs; Z82.49 Family history of ischemic heart disease and other diseases of the circulatory system; Z80.1 Family history of malignant neoplasm of trachea, bronchus and lung
CPT/HCPCS: 84132; 74210; 43282; C1781; J1644; J1100; J2765 ×2; J0690 ×2; J2405; J1650; J1170 ×2; Q9967; 86850; 86900; 86901

== ENCOUNTER → 2020-07-25 | Outpatient (CLI) | payer MEDICARE, OTHER ==
--- NOTE | 2020-07-25 15:16 | FL ---
EXAMINATION TYPE: FL UGI air w esophagus DATE OF EXAM: 07/25/2020 COMPARISON: NONE HISTORY: Dysphasia nausea vomiting since Neto fundoplication TECHNIQUE: A single contrast UGI study is performed. FINDINGS: Fluoroscopy time: 45 seconds. Images: 59 The esophagus shows normal emptying into the stomach. No evidence of hiatal hernia or stricture note d. There is incomplete stripping of the esophageal bolus the horizontal drinking position. A secondar y contraction was observed Gastroesophageal junction opens to normal caliber. There appears to be surgical suture present. No si gnificant stenosis is evident. With real-time observation there appears to be some increased contrast within the esophagus suggesting nonobserved reflux. Reflux was attempted to be elicited during the e xam but was not otherwise identified. IMPRESSION: 1. Mild presbyesophagus. 2. Some gastroesophageal reflux is likely present.
== END | disposition home or self-care (01) ==
LOC: RADUSWWP 09:43
PROVIDERS: ATTEND Surgery
DX: K22.8 Other specified diseases of esophagus (principal)
CPT/HCPCS: 74246

== ENCOUNTER 2020-08-09 10:13 | Day surgery (SDC) | payer MEDICARE, OTHER ==
[2020-08-08 09:32] VITALS: BMI 30.1
[~2020-08-09 10:13] MED LIST changes: -ACETAMINOPHEN TAB 500 MG TAB PO PRN; -HEPARIN SODIUM,PORCINE 5,000 UNIT/ML 1 ML VIAL SQ PRN; -MIDAZOLAM 2 MG/2 ML VIAL IV PRN; -ONDANSETRON 4 MG/2 ML VIAL IVP PRN; -fentaNYL (PF) 50 MCG/ML 2 ML AMP IV PRN
[2020-08-09] MEDS ORDERED: LIDOCAINE 1% (10MG/ML) FOR IV START INTRADERMA ONE (10:47)
[2020-08-09 10:51] VITALS: TEMP 97.9
[2020-08-09] MEDS ORDERED: PROPOFOL 10 MG/ML 20 ML VIAL IV ONE (11:46)
[2020-08-09] MEDS ORDERED: LIDOCAINE 1% INJ 10MG/ML (20 ML MDV) ONE (11:46)
--- NOTE | 2020-08-09 11:50 | P.GSHP ---
History of Present Illness H&P Date: 08/09/20 Chief Complaint: Dysphagia Is a 70-year-old female with history of dysphagia. Patient presents today for EGD. Past Medical History Past Medical History: GERD/Reflux, Hyperlipidemia, Hypertension, Thyroid Disorder Additional Past Medical History / Comment(s): HYPOGLYCEMIC, restless leg syndrome, hiatal hernia, hx ulcer yrs ago, History of Any Multi-Drug Resistant Organisms: None Reported Past Surgical History: Appendectomy, Back Surgery, Cholecystectomy, Hysterectomy, Joint Replacement, Orthopedic Surgery, Tonsillectomy Additional Past Surgical History / Comment(s): right knee replaced, right shoulder replacement, left foot bunionectomy, D & C, repair of hiatal hernia repair x 2, surgery for "nerve damage" rt arm, "back surgery with spacers" Past Anesthesia/Blood Transfusion Reactions: Previous Problems w/ Anesthesia Additional Past Anesthesia/Blood Transfusion Reaction / Comment(s): "My blood pressure was low in post op and they had trouble waking me up" Smoking Status: Former smoker - Past Family History Mother Family Medical History: Cancer Additional Family Medical History / Comment(s): colon Sister(s) Family Medical History: Pulmonary Embolus Brother(s) Family Medical History: Cancer Additional Family Medical History / Comment(s): esophageal, lung Medications and Allergies Home Medications Medication Instructions Recorded Confirmed Type Lisinopril/Hydrochlorothiazide 1 tab PO QAM 02/16/15 08/09/20 History [Lisinopril-Hctz 20-25 mg Tab] Atorvastatin Calcium [Lipitor] 20 mg PO DAILY 05/21/20 08/09/20 History Levothyroxine Sodium [Synthroid] 100 mcg PO DAILY 05/21/20 08/09/20 History Magnesium Oxide 400 mg PO QAM 05/21/20 08/09/20 History Omeprazole [PriLOSEC] 40 mg PO DAILY 05/21/20 08/09/20 History rOPINIRole HCL [Requip] 3 mg PO HS 05/21/20 08/09/20 History Acetaminophen Tab [Tylenol] 650 mg PO Q6H #30 tab 05/24/20 08/09/20 Rx Ibuprofen [Motrin] 600 mg PO Q6HR PRN #40 tab 05/24/20 08/09/20 Rx oxyCODONE HCL [OxyIR] 5 mg PO Q4H PRN 3 Days #18 tab 05/24/20 08/09/20 Rx Allergies Allergy/AdvReac Type Severity Reaction Status Date / Time Sulfa (Sulfonamide Allergy Unknown Verified 08/09/20 10:36 Antibiotics) Childhood Surgical - Exam Vital Signs Temp Pulse Resp BP Pulse Ox 97.9 F 76 16 129/64 96 08/09/20 10:47 08/09/20 10:47 08/09/20 10:47 08/09/20 10:47 08/09/20 10:47 - General well developed, well nourished, no distress - Eyes PERRL - ENT normal pinna - Neck no masses - Respiratory normal expansion - Cardiovascular Rhythm: regular - Abdomen Abdomen: soft, non tender Assessment and Plan Assessment: Dysphagia. We'll perform EGD.
--- NOTE | 2020-08-09 11:57 | P.OP ---
Date of Procedure: 08/09/20 Preoperative Diagnosis: Dysphagia Postoperative Diagnosis: Antral gastritis No evidence of hiatal hernia Retained food in stomach Procedure(s) Performed: EGD Surgeon: Peter Mederos Pathology: other (Antrum) Condition: stable Disposition: PACU Description of Procedure: The patient's placed on the endoscopy table in the lateral position. She received IV sedation. The gastroscope placed oropharynx passed in the esophagus into the stomach. Scope was then placed through the pylorus. The first and second portion of the duodenum appeared normal. The scope was then brought back the antrum was mildly inflamed. A biopsies performed. Scope was then retroflexed and there was retained food within the stomach. The GE junction was at 47 is. As no evidence of a hiatal hernia. The distal esophagus appeared minimally inflamed. The proximal esophagus appeared normal. Scope was withdrawn for patient.
[2020-08-09 12:20] VITALS: BP 108/65; PULSE 63; RESP 18
== END 2020-08-09 12:49 | disposition home or self-care (01) ==
LOC: ORWHC2ENDO 10:13
PROVIDERS: ATTEND Surgery
DX: K31.89 Other diseases of stomach and duodenum (principal); K29.50 Unspecified chronic gastritis without bleeding; K21.9 Gastro-esophageal reflux disease without esophagitis; R13.10 Dysphagia, unspecified; E78.5 Hyperlipidemia, unspecified; I10 Essential (primary) hypertension; E07.9 Disorder of thyroid, unspecified; E16.2 Hypoglycemia, unspecified; G25.81 Restless legs syndrome; Z90.49 Acquired absence of other specified parts of digestive tract; Z90.710 Acquired absence of both cervix and uterus; Z96.651 Presence of right artificial knee joint; Z96.611 Presence of right artificial shoulder joint; Z98.890 Other specified postprocedural states; Z90.89 Acquired absence of other organs; Z87.891 Personal history of nicotine dependence; Z80.0 Family history of malignant neoplasm of digestive organs; Z82.49 Family history of ischemic heart disease and other diseases of the circulatory system; Z80.1 Family history of malignant neoplasm of trachea, bronchus and lung; Z79.890 Hormone replacement therapy; Z79.899 Other long term (current) drug therapy; Z88.2 Allergy status to sulfonamides
CPT/HCPCS: 88305; 43239; J2001; J2704

== ENCOUNTER → 2020-08-15 | Outpatient (CLI) | payer MEDICARE, OTHER ==
--- NOTE | 2020-08-17 11:07 | MM ---
Reason for exam: screening (asymptomatic). History: Patient is postmenopausal. Physical Findings: A clinical breast exam by your physician is recommended on an annual basis and results should be correlated with mammographic findings. MG 3D Screening Mammo W/Cad Bilateral CC and MLO view(s) were taken. No prior studies available for comparison. There are scattered fibroglandular densities. There is no discrete abnormality. A few scattered benign round calcifications. Benign oil cyst left upper outer quadrant. Tiny circumscribed less than 5mm nodule right anterior lower inner quadrant typically benign. ASSESSMENT: Benign, BI-RAD 2 RECOMMENDATION: Routine screening mammogram of both breasts in 1 year.
== END | disposition home or self-care (01) ==
LOC: RADMAMWWP 13:37
PROVIDERS: ATTEND Family Medicine
DX: Z12.31 Encounter for screening mammogram for malignant neoplasm of breast (principal)
CPT/HCPCS: 77063; 77067

== ENCOUNTER → 2020-12-18 | Outpatient (CLI) | payer MEDICARE | END | disposition home or self-care (01) | LOC: LABWHC1 10:41 | PROVIDERS: ATTEND Surgery Plastic and Reconstructive Surgery | DX: Z01.810 Encounter for preprocedural cardiovascular examination (principal) | CPT/HCPCS: 36415; 93005 ==

== ENCOUNTER → 2021-01-31 | Outpatient (CLI) | payer MEDICARE ==
--- NOTE | 2021-01-31 11:12 | FL ---
EXAMINATION TYPE: FL UGI w esophagus DATE OF EXAM: 01/31/2021 LIMITED UGI-ESOPHAGRAM: CLINICAL HISTORY: Vomiting and dysphagia since most recent hernia repair surgery April 2020, hist ory of 2 prior hernia repair surgeries. TECHNIQUE: Limited esophagram is performed utilizing 20 oz of thin liquid barium. A total of 21 seco nds of fluoroscopic time was utilized during procedure and 136 images obtained. Comparison: Most recent upper GI study July 25, 2019 FINDINGS: Preprocedure quality assurance qa lab analyst image redemonstrates surgical change at the level of diaphragmatic hiat us and cholecystectomy clips. The patient swallowed contrast without difficulty or delay. Esophageal peristalsis and motility are within normal limits. There is good flow of contrast along the diaphragmatic hiatus into the stomach. Surgical change and cholecystectomy clips are redemonstrated. Small sliding-type hiatal hernia exten ding above the diaphragmatic hiatus. No significant gastroesophageal reflux seen during real-time per formance of study. IMPRESSION: Small sliding-type hiatal hernia redemonstrated without obstruction.
== END | disposition home or self-care (01) ==
LOC: RADUSWWP 09:40
PROVIDERS: ATTEND Family Medicine
DX: K44.9 Diaphragmatic hernia without obstruction or gangrene (principal); R13.10 Dysphagia, unspecified
CPT/HCPCS: 74240

== ENCOUNTER → 2021-02-14 | Outpatient (CLI) | payer MEDICARE ==
[2021-02-14 12:15] LABS: Partial Thromboplastin Time 24.5 sec (22.0-30.0); Prothrombin Time 10.5 sec (9.0-12.0)
[2021-02-14 15:59] LABS: Basophils # (A) 0.05 X 10*3/uL (0.00-0.10); Basophils % (A) 0.7 %; Eosinophils # (A) 0.08 X 10*3/uL (0.04-0.35); Eosinophils % (A) 1.1 %; HCT 42.8 % (37.2-46.3); HGB 14.1 g/dL (12.0-15.0); Lymphocytes # (A) 2.49 X 10*3/uL (0.90-5.00); Lymphocytes % (A) 34.7 %; MCH 30.8 pg (27.0-32.0); MCHC 32.9 g/dL (32.0-37.0); MCV 93.4 fL (80.0-97.0); Mean Platelet Volume 9.3 fL (9.5-12.2); Monocytes # (A) 0.93 X 10*3/uL (0.20-1.00); Neutrophils % (A) 50.2 %; Platelet Count 252 X 10*3/uL (140-440); RBC 4.58 X 10*6/uL (4.10-5.20); RDW 13.2 % (11.5-14.5); WBC 7.17 X 10*3/uL (4.50-10.00)
[2021-02-14 17:41] LABS: African American GFR (CKD) 86.6 (60.0-200.0); Albumin 4.4 g/dL (3.80-4.90); Albumin/Globulin Ratio 1.83 (1.60-3.17); Anion Gap 6.6 mmol/L (4.00-12.00); BUN/Creat Ratio 13.75 Ratio (12.00-20.00); Calcium 9.5 mg/dL (8.7-10.3); Carbon Dioxide 29.4 mmol/L (21.6-31.8); Globulin 2.4 g/dL (1.6-3.3); Non-African American GFR(CKD) 74.7 (60.0-200.0); Potassium 4.7 mmol/L (3.5-5.5); Total Bilirubin 0.6 mg/dL (0.2-1.2); Total Protein 6.8 g/dL (6.2-8.2)
== END | disposition home or self-care (01) ==
LOC: LABWHC1 10:39
PROVIDERS: ATTEND Nurse Practitioner Family
DX: Z01.812 Encounter for preprocedural laboratory examination (principal)
CPT/HCPCS: 36415; 80053; 85025; 85610; 85730

== ENCOUNTER → 2022-01-02 | Outpatient (CLI) | payer MEDICARE ==
--- NOTE | 2022-01-02 10:01 | FL ---
ESOPHOGRAM. HISTORY: Dysphagia. Several prior Neto fundoplication's. Esophagram was performed per the air contrast technique. The patient swallowed barium and effervesce nt crystals without difficulty or delay. Esophageal peristalsis and motility appear to be within normal limits. There is no evidence for filling defect, mass or diverticulum. There is evidence of a recurrent hiatal hernia small to moderate in size which is reducible. Subsequently single contrast cervical esophagram was performed which fails demonstrate evidence for a spiration penetration or mass. IMPRESSION: Recurrent reducible hiatal hernia.
== END ==
LOC: RADUSWWP 08:29
PROVIDERS: ATTEND Family Medicine
DX: K44.9 Diaphragmatic hernia without obstruction or gangrene (principal); K21.9 Gastro-esophageal reflux disease without esophagitis
CPT/HCPCS: 74220

== ENCOUNTER → 2022-07-23 | Outpatient (CLI) | payer MEDICARE ==
--- NOTE | 2022-07-24 04:51 | MR ---
EXAMINATION TYPE: MR ankle RT wo/w con DATE OF EXAM: 07/23/2022 COMPARISON: None HISTORY: Right ankle pain/injury, possible peroneal tendon tear. CONTRAST: Standard multiplanar, multisequence MRI departmental protocol images were obtained without contrast a nd with 7.5 mL intravenous Gadavist gadolinium contrast. The ankle mortise is anatomic. The Achilles tendon is intact. Plantar fascia is intact. There is mild ankle joint effusion. There is fluid around the peroneal longus and brevis tendons. No evidence of a definite tendon tear. The medial flexor tendons are intact. The collateral ligaments are intact. There is some minimal coleen a in the distal fibula at the medial aspect of the lateral malleolus. This area measures 8 mm. There is mild subcutaneous edema of the mid foot. No fracture line seen. There is mild spurring at the talo navicular joint. IMPRESSION: There is some fluid around the peroneal longus and brevis tendons consistent with some synovitis and mild tendinitis. No tendon tear. Mild arthritic change at the talonavicular joint. Small ankle joint effusion. Subcutaneous edema. No fracture seen.
== END | disposition home or self-care (01) ==
LOC: RADMRIMAIN 17:18
PROVIDERS: ATTEND Podiatrist Foot & Ankle Surgery
DX: M19.071 Primary osteoarthritis, right ankle and foot (principal); M76.71 Peroneal tendinitis, right leg; M25.571 Pain in right ankle and joints of right foot; M25.471 Effusion, right ankle
CPT/HCPCS: 73723; A9585

== ENCOUNTER → 2023-06-01 | Outpatient (CLI) | payer MEDICARE ==
--- NOTE | 2023-06-01 11:37 | CA ---
Exercise Stress Test Report Name: Jayshree Ovalle Exam Date: 06/01/2023 09:05 Exam Location: [facility] Stress Ht (in): 63 Wt (lb): 180 BSA: 1.85 Ordering Phys: Kitty Torres MD Referring Phys: Aaron Mendez Technologist: CJ GALAVIZ Age: 73 Gender: F : 1950 Procedure CPT: Indications: R94.31 abn ekg ICD-10 Codes: Patient History: PALPITATIONS, HTN, ELEVATED CHOLESTEROL LEVELS, FAMILY HX OF HEART DISEASE, PRIOR SMOKER Medications: Meds past 24 hrs: Pretest Chest Pain: STRESS TEST [place] Protocol Exercise Duration (min:sec): 04:[address] Depressions (mm): Angina Score: Stewart Score: Resting HR (bpm): 80 Peak HR (bpm): 134 Resting BP (mmHg): 150 / 102 Peak BP (mmHg): 231 / 96 MPHR: 147 Target HR: 125 % MPHR: 91 METS: 6.5 Total Dose: Peak Dose: Atropine: Double Product: 10862 BP Response: Stress Termination: MAX EXERTION/TARGET HR Stress Symptoms: NO SYMPTOMS Stress Summary: ECG ANALYSIS Resting ECG: Stress ECG: CONCLUSIONS Average exercise tolerance Normal EKG in response to exercise Dr. Samir Logan MD (Electronically Signed) Final Date: 01 June 2023 11:36
== END | disposition home or self-care (01) ==
LOC: RADNMMAIN 08:23
PROVIDERS: ATTEND Family Medicine
DX: R94.31 Abnormal electrocardiogram [ECG] [EKG] (principal); I10 Essential (primary) hypertension; E78.00 Pure hypercholesterolemia, unspecified; Z87.891 Personal history of nicotine dependence
CPT/HCPCS: 93017